=== PATIENT | female | born 1960 | race Caucasian/White ===

== ENCOUNTER 2024-02-05 08:00 | Inpatient (IN) | payer OTHER ==
[~2024-02-05] VITALS: Ht 152.4 cm; Wt 72.6 kg
[2024-02-05 08:21] LABS: HEMATOCRIT 36.6 % (36.0-45.00); HEMOGLOBIN 12.4 g/dL (12.0-15.00); MEAN CELL VOLUME 87.7 fL (80.00-100.00); MEAN CORPUSCULAR HEMOGLOBIN 29.7 pg (27.00-32.0); MEAN CORPUSCULAR HGB CONC 33.9 g/dl (32.0-36.0); PLATELET COUNT 382 K/uL (150-450); RED BLOOD COUNT 4.17 M/uL (4.00-6.00); RED CELL DISTRIBUTION WIDTH 15.6 % (11.5-14.5)
[2024-02-05 08:46] LABS: INR 1.03; PARTIAL THROMBOPLASTIN TIME 30.7 SECONDS (22.0-34.0); PROTHROMBIN TIME 10.8 SECONDS (9.0-11.5)
[2024-02-05] MEDS ORDERED: ARIMIDEX (08:52)
[2024-02-05] MEDS ORDERED: PRILOSEC OTC20 MG PO (08:53)
[2024-02-05] MEDS ORDERED: [UNRECOGNIZED DRUG - OTHER] (08:53)
[2024-02-05] MEDS ORDERED: PROZAC20 MG PO (08:53)
[2024-02-05] MEDS ORDERED: OSTERA TABLET1 EACH PO (08:54)
[2024-02-05 09:21] LABS: ALBUMIN 3.7 gm/dL (3.4-5.0); BILIRUBIN TOTAL 0.32 mg/dL (0.3-1.2); CALCIUM 9.1 mg/dL (8.5-10.1); CREATININE SERUM 0.61 mg/dL (0.55-1.02); GFR 98.43; GLOBULINA 4.5 G/DL (2.4-3.5); POTASSIUM 4.12 mEq/L (3.5-5.1); TOTAL PROTEIN 8.2 gm/dL (6.4-8.2)
[2024-02-05 09:46] LABS: PH,URINE 5.5 (5.0-8.0); URINE APPEARANCE Clear; URINE BILIRRUBIN Negative (NEGATIVE); URINE BLOOD Small; URINE COLOR Yellow; URINE GLUCOSE Negative (NEGATIVE); URINE LEUKOCYTE Moderate; URINE NITRATE Negative; URINE PROTEIN Negative (NEGATIVE); URINE UROBILINOGEN 0.2 E.U./dl
[2024-02-05 09:51] LABS: URINE BACTERIA 409.3 uL (0.0-1933); URINE EPITHELIAL CELLS 16.3 uL (0.0-38.8); URINE RBC 23.2 uL (0.0-20.8); URINE WBC 53.7 uL (0.0-23.2)
[2024-02-10] MEDS ORDERED: TRANEXAMIC ACID 100MG/1ML (1000MG) AMPUL IV ONE (08:45)
[2024-02-10] MEDS ORDERED: POLYMYXIN B SULFATE 500,000 U VIAL IR ONE (08:45)
[2024-02-10] MEDS ORDERED: LIDOCAINE HCL 1%/EPINEPHRINE 20ML VIAL IJ ONE (08:45)
[2024-02-10] MEDS ORDERED: ISOPROPYL ALCOHOL 30 ML OUNCE TOP NR (08:45)
[2024-02-10] MEDS ORDERED: VANCOMYCIN HCL 1,000 MG VIAL IR ONE (08:45)
[2024-02-10] MEDS ORDERED: MORPHINE SULFATE 4 MG/ML CARTRIDGE IV ONE (08:45)
[2024-02-10] MEDS ORDERED: TRANEXAMIC ACID 100MG/1ML (1000MG) AMPUL IV NR (08:45)
[2024-02-10] MEDS ORDERED: CEFAZOLIN SODIUM 1,000 MG VIAL IV ONE (08:45)
[2024-02-10] MEDS ORDERED: BUPIVACAINE HCL 30 ML VIAL IJ ONE (08:45)
[2024-02-10] MEDS ORDERED: ANASTROZOLE1 MG (09:59)
[2024-02-10] MEDS ORDERED: VITAMIN D3125 MC1 (09:59)
[2024-02-10] MEDS ORDERED: FLUOXETINE HCL10 MG (09:59)
[2024-02-10] MEDS ORDERED: AZATHIOPRINE50 MG (09:59)
[2024-02-10] MEDS ORDERED: MORPHINE SULFATE 2 MG/ML CARTRIDGE IV ONE (10:15)
[2024-02-10] MEDS ORDERED: MORPHINE SULFATE 4 MG/ML CARTRIDGE IV PRN (10:15)
[2024-02-10] MEDS ORDERED: ONDANSETRON HCL 2 MG/ML VIAL IV PRN (10:15)
[2024-02-10] MEDS ORDERED: SODIUM CHLORIDE 0.45 % 1,000 ML IV SCH (10:15)
[2024-02-10] MEDS ORDERED: CEFAZOLIN SODIUM 1,000 MG VIAL IV SCH (12:00)
[2024-02-10 13:45] LABS: HEMATOCRIT 32.7 % (36.0-45.00); RED BLOOD COUNT 3.65 M/uL (4.00-6.00)
[2024-02-10] MEDS ORDERED: GENTAMICIN SULFATE 40 MG/ML VIAL IV SCH (17:00)
[2024-02-11 00:57] LABS: HEMATOCRIT 32.8 % (36.0-45.00); MEAN CELL VOLUME 88.5 fL (80.00-100.00); MEAN CORPUSCULAR HEMOGLOBIN 29.9 pg (27.00-32.0); MEAN CORPUSCULAR HGB CONC 33.8 g/dl (32.0-36.0); PLATELET COUNT 331 K/uL (150-450); RED BLOOD COUNT 3.71 M/uL (4.00-6.00); RED CELL DISTRIBUTION WIDTH 14.8 % (11.5-14.5)
[2024-02-11 00:58] LABS: HEMOGLOBIN 11.1 g/dL (12.0-15.00)
[2024-02-11] MEDS ORDERED: OxyCODONE HCL/APAP UD (PERCOCET) PO PRN (08:00)
[2024-02-11] MEDS ORDERED: OxyCODONE HCL ER 10MG TAB (OxyCONTIN) PO SCH (09:00)
[2024-02-11] MEDS ORDERED: SENNA/DOCUSATE SODIUM 1 TAB TABLET PO SCH (09:00)
[2024-02-11] MEDS ORDERED: RIVAROXABAN 10 MG TAB PO SCH (09:00)
[2024-02-11] MEDS ORDERED: IRON FUM,PS/FOLIC/BCOMP,C NO.9 1 CAP CAPSULE PO SCH (09:00)
[2024-02-11] MEDS ORDERED: BACITRACIN 28.35 GM OINT.TUBE TOP SCH (09:00)
[2024-02-12 01:32] LABS: HEMATOCRIT 29.8 % (36.0-45.00); HEMOGLOBIN 10.1 g/dL (12.0-15.00); MEAN CELL VOLUME 86.2 fL (80.00-100.00); MEAN CORPUSCULAR HEMOGLOBIN 29.2 pg (27.00-32.0); MEAN CORPUSCULAR HGB CONC 33.9 g/dl (32.0-36.0); PLATELET COUNT 277 K/uL (150-450); RED BLOOD COUNT 3.45 M/uL (4.00-6.00); RED CELL DISTRIBUTION WIDTH 14.9 % (11.5-14.5)
[2024-02-12] MEDS ORDERED: OXYC1TAB9 PO (08:39)
[2024-02-12] MEDS ORDERED: DUI500 PO (08:39)
[2024-02-12] MEDS ORDERED: XARELTO10 MG PO (08:39)
[2024-02-12] MEDS ORDERED: INTEGRA PLUS C1 EACH PO (08:39)
[2024-02-12] MEDS ORDERED: CEFADROXIL 500 MG CAPSULE PO SCH (09:00)
== END 2024-02-12 17:35 | DRG 465 ==
LOC: O/R 02-10 05:14 → SURH 02-10 08:00 → OB/GYN 02-10 14:48
PROVIDERS: ADMIT Orthopaedic Surgery Sports Medicine; ATTEND Orthopaedic Surgery Sports Medicine
PROC: 0JBP0ZZ Excision of Left Lower Leg Subcutaneous Tissue and Fascia, Open Approach (ICD-10-PCS; 2024-02-10)
PROC: 0SRD0J9 Replacement of Left Knee Joint with Synthetic Substitute, Cemented, Open Approach (ICD-10-PCS; principal; 2024-02-10 10:30)
DX: M17.12 Unilateral primary osteoarthritis, left knee (principal)